=== PATIENT | female | born 1950 | race Caucasian/White ===

== ENCOUNTER 2018-10-19 15:29 | Emergency (ER) | payer MEDICARE ==
[~2018-10-19] VITALS: Ht 165.1 cm; Wt 80.9 kg
[2018-10-19 16:06] LABS: BASOPHILS % (AUTO) 0.4 % (0-1); EOSINOPHILS # (AUTO) 0.2 X10'3 (0-0.9); EOSINOPHILS % (AUTO) 1.9 % (0-6); HEMATOCRIT 38.4 % (35.0-45.0); HEMOGLOBIN 13.1 g/dl (12.0-16.0); LYMPHOCYTES # (AUTO) 1.6 X10'3 (1.1-4.8); LYMPHOCYTES % (AUTO) 18.9 % (21-51); MEAN CORPUSCULAR HEMOGLOBIN 30.8 PG (27.0-31.0); MEAN CORPUSCULAR HGB CONC 34.3 g/dL (33.0-36.5); MEAN CORPUSCULAR VOLUME 89.8 FL (78-98); MEAN PLATELET VOLUME 8.7 FL (7.4-10.4); MONOCYTES # (AUTO) 0.4 X10'3 (0-0.9); MONOCYTES % (AUTO) 4.2 % (2-12); NEUTROPHILS # (AUTO) 6.4 X10'3 (1.8-7.7); NEUTROPHILS % (AUTO) 74.6 % (42-75); PLATELET COUNT 239 X10'3 (140-440); RED BLOOD COUNT 4.27 X10'6 (4.20-5.60); RED CELL DISTRIBUTION WIDTH 13.6 % (11.5-14.5); WHITE BLOOD COUNT 8.6 X10'3 (4.5-11.0)
[2018-10-19 16:19] LABS: ALANINE AMINOTRANSFERASE 41 U/L (12-78); ALBUMIN 3.9 G/DL (3.4-5.0); ALBUMIN/GLOBULIN RATIO 1.1 (1.1-1.5); ALKALINE PHOSPHATASE 92 IU/L (46-116); ANION GAP 7 (8-16); ASPARTATE AMINO TRANSFERASE 26 U/L (10-37); BILIRUBIN,TOTAL 0.2 MG/DL (0.1-1.0); BLOOD UREA NITROGEN 19 MG/DL (7-18); BUN/CREATININE RATIO 22.6 (6.6-38.0); CALCIUM 8.6 MG/DL (8.5-10.1); CHLORIDE 105 MMOL/L (99-107); CREATININE 0.84 MG/DL (0.40-0.90); GLUCOSE 109 MG/DL (70-104); POTASSIUM 3.7 MMOL/L (3.5-5.1); SODIUM 139 MMOL/L (135-145); TOTAL CARBON DIOXIDE 26.7 MMOL/L (24-32); TOTAL PROTEIN 7.5 G/DL (6.4-8.2); eGFR 67 ML/MIN
[2018-10-19 16:22] LABS: PARTIAL THROMBOPLASTIN TIME 29 SECONDS (22-32)
[2018-10-19 19:03] VITALS: BP 172/90
== END 2018-10-19 19:49 | disposition home or self-care (01) ==
LOC: ER 15:30
DX: M25.512 Pain in left shoulder (principal); R53.1 Weakness; R42 Dizziness and giddiness; I10 Essential (primary) hypertension; E03.9 Hypothyroidism, unspecified
CPT/HCPCS: 36415; 71045; 80053; 84484; 85025; 85610; 85730; 93005; 99284

== ENCOUNTER 2022-03-17 13:30 | Emergency (ER) | payer MEDICARE ==
[~2022-03-17] VITALS: Ht 167.6 cm; Wt 84.7 kg
[2022-03-17 14:24] VITALS: BP 175/76
[2022-03-17] MEDS ORDERED: AMOX-117 PO (14:52)
== END 2022-03-17 15:00 | disposition home or self-care (01) ==
LOC: ER 13:30
DX: J01.90 Acute sinusitis, unspecified (principal); I10 Essential (primary) hypertension
CPT/HCPCS: 99283

== ENCOUNTER 2024-12-07 09:09 | Outpatient (CLI) | payer MEDICARE ==
--- NOTE | 2024-12-09 17:45 | RADIOLOGY REPORT ---
CLINICAL INDICATION: PAIN IN LEFT FOOT COMPARISON: None TECHNIQUE: Multiplanar, multisequence MRI of the left ankle was performed without intravenous contra st. Contrast: None INTERPRETATION: Bones: No evidence of acute fracture. No evidence of marrow replacing lesion. Alignment: Unremarkable. Ligaments: The anterior talofibular ligament is intact. The posterior talofibular ligament is intact. The calcaneofibular ligament is intact. The inferior tibiofibular ligaments are intact. The visualiz ed portions of the deltoid and spring ligaments are intact. Tendons:The Achilles tendon is intact. The peroneal tendons are intact. The posterior tibialis, fle xor hallucis longus and flexor digitorum longus tendons are intact. The dorsal extensor tendons are intact. Plantar Fascia: The medial cord of the plantar fascia is intact. Heel spur. Bursae: The retroachilles bursa is not fluid distended. The retrocalcaneal bursa is not fluid diste nded. Mass/Fluid: Small ankle joint effusion. No mass or fluid in the sinus tarsi. Muscles: Intrinsic muscles of the foot are unremarkable IMPRESSION: 1. No ligament, tendon or osseous injury in the left ankle. No bursitis. 2. Small ankle joint effusion.
== END 2024-12-07 23:59 | disposition home or self-care (01) ==
LOC: MRI02 09:09
PROVIDERS: ATTEND Podiatrist Foot & Ankle Surgery
DX: S86.302A Unspecified injury of muscle(s) and tendon(s) of peroneal muscle group at lower leg level, left leg, initial encounter (principal); M79.672 Pain in left foot; M25.472 Effusion, left ankle; X58.XXXA Exposure to other specified factors, initial encounter; Y93.89 Activity, other specified; Y92.89 Other specified places as the place of occurrence of the external cause; Y99.8 Other external cause status
CPT/HCPCS: 73721